=== PATIENT | female | born 1965 | race Caucasian/White ===

== ENCOUNTER 2016-08-18 07:22 | Day surgery (SDC) | payer BC, OTHER ==
[2016-08-18] VITALS (11 sets, daily range): BP systolic 97–139; BP diastolic 53–88; PULSE 57–75; RESP 13–20; Ht 165.1 cm; Wt 74.0 kg
[~2016-08-18] VITALS: Ht 165.1 cm; Wt 74.0 kg
--- NOTE | 2016-08-18 08:37 | HPN ---
Date/Time of Note Date/Time of Note DATE: 08/18/16 TIME: 08:37 Interval H&P Admission Note Pt. seen H&P reviewed: No system changes VICKIE CONNELLY MD August 18, 2016 08:37
[2016-08-18] MEDS ORDERED: LIDOCAINE 2% (SDV) 5 ML INJ ONE (09:10)
[2016-08-18] MEDS ORDERED: MEPERIDINE 100 MG INJ ONE (09:10)
[2016-08-18] MEDS ORDERED: PROPOFOL 20 ML ONE (09:10)
[2016-08-18] MEDS ORDERED: ONDANSETRON 4 MG INJ ONE (09:11)
[2016-08-18] MEDS ORDERED: METOCLOPRAMIDE 10 MG INJ ONE (09:11)
--- NOTE | 2016-08-18 10:09 | PD.PPDC ---
[employer] Discharge Instruction Diagnosis Final Diagnosis: postmenopausal bleeding uterine fibroid Condition Patient Condition: Stable Diet Diet: Resume Regular Diet Activity/Restrictions Activity: August Shower Restrictions: Nothing in the Vagina No [place] No Tampons, douche Follow-up Follow-up with Physician: 2, Week/Weeks Return to clinic for [employer]ER Instructions: Fever greater than 101 Chills Worsening abdominal pain Excessive Vaginal Bleeding More than 2 pads per hour Unable to tolerate diet VICKIE CONNELLY MD August 18, 2016 10:09
[2016-08-18] MEDS ORDERED: DIPHENHYDRAMINE 50 MG INJ IV PRN (10:30)
[2016-08-18] MEDS ORDERED: MEPERIDINE 25 MG INJ IV PRN (10:30)
[2016-08-18] MEDS ORDERED: FENTAnyl 50 MCG/ML VIAL IV PRN ×2 (10:30)
[2016-08-18] MEDS ORDERED: MIDAZOLAM 1 MG/ML 2 ML INJ IV PRN (10:30)
[2016-08-18] MEDS ORDERED: METOCLOPRAMIDE 10 MG INJ IV PRN (10:30)
[2016-08-18] MEDS ORDERED: ONDANSETRON 4 MG INJ IV PRN (10:30)
[2016-08-18] MEDS ORDERED: morphine (1 MG/ML) 10ML SYRINGE IV PRN ×2 (10:30)
--- NOTE | 2016-08-18 10:51 | OPR ---
DATE OF OPERATION: 08/18/2016 PREOPERATIVE DIAGNOSIS: Postmenopausal bleeding and uterine fibroid. POSTOPERATIVE DIAGNOSIS: See pathological report. OPERATION PERFORMED: Hysteroscopic dilatation and curettage. ANESTHESIA: General. ANESTHESIOLOGIST: Dr. Conde. SURGEON: Reece Alanis MD [employer]ER: from [facility]. DESCRIPTION OF PROCEDURE: Under the proper induction of general anesthesia, the patient was placed in the dorsal lithotomy position. Perineal area and vagina wall was prepped and draped in usual ase ptic manner. On inspection, external genitalia revealed no gross abnormality, and bimanual examinat ion of the uterus felt to be approximately 8 weeks of gestational size, form and consistency. There was no palpable adnexal pathology. Weighted speculum introduced, cervix was identified, which was grasped with a single tooth tenaculum. Endocervical curettage was performed with obtaining scanty t issue which was sent to pathology separately and the cavity was sounded, which was 9 cm in depth. O s dilated up to a size 6 and then 5.5 hysteroscope was inserted, and as progressed the endocervical canal was visualized and picture was taken. The fluid was instilled for the distention of the uteru s and visualized the fundal area with some blood clots covering the left ostium. The right ostium w as cleared. The both ostium was seen and the fundus was visualized. At this point, the resectoscop e was inserted and the usual procedure was performed with blade down with the proper position with h ysteroscope and the and the endometrial tissue was curetted in all directions, which was sent to the retriever. The satisfactory procedure was done and the entire hysteroscope and the resectosc ope was removed at the same time. The fluid deficit was 0. Procedure was completed. The patient w ithstood the procedure well, sent to recovery in stable condition. Sponge count correct. Instrumen t count correct. Dictated By: REECE ROSADO/CLEMENTINE Conf#: [id number] DID#: [id number]
[2016-08-18] MEDS ORDERED: LACTATED RINGER'S 1,000 ML IV* SCH (13:00)
== END 2016-08-18 11:52 | disposition home or self-care (01) ==
LOC: SDS 07:22
PROVIDERS: ATTEND Obstetrics & Gynecology
DX: N95.0 Postmenopausal bleeding (principal); D25.9 Leiomyoma of uterus, unspecified
CPT/HCPCS: 58558; 84703; J2175; J2405; J2765